=== PATIENT | female | born 1955 | race Caucasian/White ===

== ENCOUNTER 2016-09-04 15:00 | Emergency (ER) | payer OTHER ==
[2016-09-04 15:09] VITALS: BP 120/71
[2016-09-04] MEDS ORDERED: DOXYcycline CAP(*) 100 MG PO ONE (16:02)
--- NOTE | 2016-09-04 16:09 | UC ---
Skin Complaint HPI - HPI Summary HPI Summary: 60 y/o female presents to the urgent care c/o of tick bite in the mid abdomen since this morning while [place] in the [place]. She removed the tick, but it is concern if there still some remnants inside her skin. Patient denies fever, rash, SOB, GUERRA. chest pain, N/V/D. - History of Current Complaint Chief Complaint: UCSkin Time Seen by Provider: 09/04/16 15:53 Stated Complaint: TICK BITE Hx Obtained From: Patient ?: No Onset/Duration: Sudden Onset, Lasting Hours, Still Present Skin Exposure Onset/Duration: Hours Ago Onset Severity: Mild Current Severity: Mild Pain Intensity: 0 Pain Scale Used: 0-10 Numeric Location: Other - left side of the mid abdomen Character: Redness Aggravating: Nothing Alleviating: Nothing Associated Signs & Symptoms: Negative: Nausea, Vomiting, Fever, Tenderness Related History: Insect Bite/Sting - Allergy/Home Medications Allergies/Adverse Reactions: Allergies Allergy/AdvReac Type Severity Reaction Status Date / Time Peanut-containing Drug Allergy See Comment Verified 09/04/16 15:09 Products Shrimp Flavor Allergy Unknown Verified 09/04/16 15:09 Reaction Details Home Medications: Home Medications NK [No Home Medications Reported] 09/04/16 [History Confirmed 09/04/16] Review of Systems Constitutional: Negative Skin: Other - left mid abdomen tick bite Eyes: Negative ENT: Negative Respiratory: Negative Cardiovascular: Negative Gastrointestinal: Negative Genitourinary: Negative Motor: Negative Neurovascular: Negative Musculoskeletal: Negative Neurological: Negative Psychological: Negative All Other Systems Reviewed And Are Negative: Yes PMH/Surg Hx/FS Hx/Imm Hx - Surgical History Surgical History: None - Social History Alcohol Use: Occasionally Substance Use Type: None Smoking Status (MU): Light Every Day Tobacco Smoker Physical Exam Triage Information Reviewed: Yes Appearance: Well-Appearing, No Pain Distress, Well-Nourished, Thin Vital Signs: Initial Vital Signs Temp 98.3 F 09/04/16 15:06 Pulse 71 09/04/16 15:06 Resp 16 09/04/16 15:06 BP 120/71 09/04/16 15:06 Pulse Ox 98 09/04/16 15:06 Vital Signs Reviewed: Yes Eye Exam: Normal Eyes: Positive: Conjunctiva Clear ENT Exam: Normal ENT: Positive: Normal ENT inspection, Hearing grossly normal, Pharynx normal, TMs normal Neck exam: Normal Neck: Positive: Supple, Nontender, No Lymphadenopathy Respiratory Exam: Normal Respiratory: Positive: Chest non-tender, Lungs clear, Normal breath sounds Cardiovascular Exam: Normal Cardiovascular: Positive: RRR, No Murmur, Pulses Normal Abdominal Exam: Normal Abdomen Description: Positive: Nontender, No Organomegaly, Soft Bowel Sounds: Positive: Present Musculoskeletal Exam: Normal Musculoskeletal: Positive: Strength Intact, ROM Intact Neurological Exam: Normal Psychological Exam: Normal Skin: Positive: Other - Left mid abdomen with mild erythema s/p tick bite. No swelling, or tenderness on palpation. no tick remnants. RT lateral side of the lower extremity with old insect bite, no erythema, swelling or signs of infection observed. Course/Dx - Course Course Of Treatment: Tick bite: Hx obtained. PE abnormal finding:Left mid abdomen with mild erythema s/p tick bite. No swelling, or tenderness on palpation. no tick remnants. RT lateral side of the lower extremity with old insect bite, no erythema, sweling or signs of infection. Patient advised to observe the area for the development or Erythema Migrans for upto 30 days following exposure. Components of the tick saliva can cause transient erythema that should no be confused with Erythema Migrans. Patient given antibiotic prophylaxis with Doxycycline given to the patient to prevent lyme Disease.. Pt tolerated well medication and left the clinic ambulating. - Differential Diagnoses - Skin Complaint Differential Diagnoses: Cellulitis, Scabies, Tick Born Illness, Tinea, Other - tick bite - Diagnoses Provider Diagnoses: Tick bite Discharge - Discharge Plan Condition: Stable Disposition: HOME Patient Education Materials: Tick Bite (ED) Referrals: [facility] [place] [facility] [Outside] Additional Instructions: Please observe the area for the development or Erythema Migrans for upto 30 days following exposure. Components of the tick saliva can cause transient erythema that should no be confused with Erythema Migrans. Antibiotic prophylaxis with Doxycycline given todayt to prevent lyme Disease..
== END 2016-09-04 16:32 | disposition home or self-care (01) ==
LOC: UCEAST 15:00
DX: S30.861A Insect bite (nonvenomous) of abdominal wall, initial encounter (principal); W57.XXXA Bitten or stung by nonvenomous insect and other nonvenomous arthropods, initial encounter; F17.200 Nicotine dependence, unspecified, uncomplicated
CPT/HCPCS: 99211; A9270-GY; G0463